=== PATIENT | female | born 1990 | race Two or more races ===

== ENCOUNTER → 2021-09-15 | Emergency (ER) | payer OTHER | END | disposition left against medical advice (07) | LOC: ER 13:35 | DX: Z53.21 Procedure and treatment not carried out due to patient leaving prior to being seen by health care provider (principal) ==

== ENCOUNTER 2022-04-16 14:15 | Inpatient (IN) | payer OTHER ==
[~2022-04-16] VITALS: Ht 162.6 cm; Wt 81.6 kg
[2022-05-15] MEDS ORDERED: SYNTHROID50 MCG PO (00:58)
[2022-05-15] MEDS ORDERED: ALLERGY RELIEF10 M3 PO (00:59)
[2022-05-15] MEDS ORDERED: PRENATAL + DHA1 EAC1 PO (00:59)
[2022-05-15] MEDS ORDERED: PEPCID AC20 MG PO (00:59)
== END 2022-05-17 13:34 | disposition home or self-care (01) | DRG 807 ==
LOC: OB/GYN 05-14 14:15 → LDR 05-15 00:55 → OB/GYN 05-15 12:12
PROVIDERS: ADMIT Obstetrics & Gynecology; ATTEND Obstetrics & Gynecology
PROC: 10E0XZZ Delivery of Products of Conception, External Approach (ICD-10-PCS; principal; 2022-05-15)
PROC: 0KQM0ZZ Repair Perineum Muscle, Open Approach (ICD-10-PCS; 2022-05-15)
PROC: 0UQG7ZZ Repair Vagina, Via Natural or Artificial Opening (ICD-10-PCS; 2022-05-15)
PROC: 4A1HXCZ Monitoring of Products of Conception, Cardiac Rate, External Approach (ICD-10-PCS; 2022-05-15)
DX: O70.1 Second degree perineal laceration during delivery (principal); Z37.0 Single live birth; O99.824 Streptococcus B carrier state complicating childbirth; Z3A.40 40 weeks gestation of pregnancy; Z20.822 Contact with and (suspected) exposure to COVID-19